=== PATIENT | female | born 1970 | race Caucasian/White ===

== ENCOUNTER 2017-02-16 19:58 | Emergency (ER) | payer OTHER ==
[~2017-02-16] VITALS: Ht 165.1 cm; Wt 77.0 kg
[2017-02-16 20:55] LABS: PATH.CAST-FLAG NOT PRESENT; SPERM-FLAG NOT PRESENT; SRC-FLAG NOT PRESENT; XTAL-FLAG NOT PRESENT; YLC-FLAG NOT PRESENT
[2017-02-16 21:01] LABS: BLOOD UREA NITROGEN 13 mg/dL (7-18)
[2017-02-16 21:39] VITALS: BP 138/89
== END 2017-02-16 21:42 | disposition home or self-care (01) ==
LOC: ED 21:36
DX: N12 Tubulo-interstitial nephritis, not specified as acute or chronic (principal); R30.0 Dysuria
CPT/HCPCS: 36415; 80048; 81001; 82040; 84703; 85025; 87077; 87086; 87186; 99284

== ENCOUNTER 2017-04-05 23:08 | Emergency (ER) | payer OTHER ==
[~2017-04-05] VITALS: Ht 165.1 cm; Wt 79.5 kg
[2017-04-05 23:13] VITALS: BP 135/86
[2017-04-05 23:40] LABS: PATH.CAST-FLAG NOT PRESENT; SPERM-FLAG NOT PRESENT; SRC-FLAG NOT PRESENT; XTAL-FLAG NOT PRESENT; YLC-FLAG NOT PRESENT
[2017-04-06] MEDS ORDERED: AMPICILLIN 1 GM IM ONE (00:30)
[2017-04-06] MEDS ORDERED: PHENAZOPYRIDINE 200 MG TABLET PO ONE (00:30)
[2017-04-06] MEDS ORDERED: PHENAZOPYRIDINE 200 MG TABLET ONE (00:38)
[2017-04-06] MEDS ORDERED: ALBU18HF INH (00:56)
== END 2017-04-06 01:41 | disposition home or self-care (01) ==
LOC: ED 23:59
DX: N39.0 Urinary tract infection, site not specified (principal)
CPT/HCPCS: 81001; 87086; 96372; 99284; J0290